=== PATIENT | female | born 1960 | race African-American/Black ===

== ENCOUNTER 2020-07-16 16:34 | Inpatient (IN) | payer OTHER ==
--- OUTSIDE RECORDS SUMMARY | 2020-07-16 16:41 | XMS ---
:1960 Author Organization [facility] Support Name Relationship Address Phone UE Unavailable Unavailable Unavailable DARYN ZAMAN DAUGHTER [address] [address] [place] [address] Re-disclosure Warning The records that you are about to access may contain information from federally- assisted alcohol or drug abuse programs. If such information is present, then the following federally mandated warning applies: This information has been disclosed to you from records protected by federal confidentiality rules (42 CFR part 2). The federal rules prohibit you from making any further disclosure of this information unless further disclosure is expressly permitted by the written consent of the person to whom it pertains or as otherwise permitted by 42 CFR part 2. A general authorization for the release of medical or other information is NOT sufficient for this purpose. The Federal rules restrict any use of the information to criminally investigate or prosecute any alcohol or drug abuse patient.The records that you are about to access may contain highly sensitive health information, the redisclosure of which is protected by Article 27-F of the [facility] Public Health law. If you continue you may haveaccess to information: Regarding HIV / AIDS; Provided by facilities licensed or operated by the [facility] Office of Mental Health; or Provided by the [facility] Office for People With Developmental Disabilities. If such information is present, then the following [facility] mandated warning applies: This information has been disclosed to you from confidential records which are protected by state law. State law prohibits you from making any further disclosure of this information without the specific written consent of the person to whom it pertains, or as otherwise permitted by law. Any unauthorized further disclosure in violation of state law may result in a fine or custodial sentence or both. A general authorization for the release of medical or other information is NOT sufficient authorization for further disclosure. Insurance Providers Payer name Policy type Policy ID Covered Covered republican's Policy P braeden / Coverage republican ID relationship to [employer] ormation type kuo [facility] [id number] MEDICAID COMM PLAN
[2020-07-16 18:00] VITALS: BMI 22.2
[2020-07-16] MEDS ORDERED: BISMUTH SUBSALICYLATE 524 MG/30 ML UD PO PRN (18:46)
[2020-07-16] MEDS ORDERED: NICOTINE POLACRILEX 2 MG GUM BUC PRN (18:46)
[2020-07-16] MEDS ORDERED: ACETAMINOPHEN 325 MG TABLET (FP) PO PRN ×2 (18:46)
[2020-07-16] MEDS ORDERED: cloNIDine HCL 0.1 MG TABLET PO PRN (18:46)
[2020-07-16] MEDS ORDERED: METHOCARBAMOL 500 MG TABLET PO PRN (18:46)
[2020-07-16] MEDS ORDERED: MENTHOL/PHENOL 1 EACH UD MM PRN (18:46)
[2020-07-16] MEDS ORDERED: MAG HYDROX/AL HYDROX/SIMETH 30 ML UNIT-DOSE CUP PO PRN (18:46)
[2020-07-16] MEDS ORDERED: MAGNESIUM HYDROX 2400MG/30ML ORAL SUSPENSION 30 ML CUP PO PRN (18:46)
[2020-07-16] MEDS ORDERED: METHADONE HCL 10 MG TABLET (FOR DETOX USE ONLY) PO ONE (18:46)
[2020-07-16] MEDS ORDERED: MAGNESIUM CITRATE 300 ML BOTTLE PO PRN (18:46)
--- NOTE | 2020-07-16 18:53 | BHS.RME ---
Substance Use & Tx History - Substance Use History Heroin Substance amount: 5 ags Frequency of use: Daily Substance route: Inhalation (ex: sniffing or snorting) Nicotine Substance amount: 10 Frequency of use: Daily Substance route: Smoking - Last Treatment Treatment type: Medical Where was last treatment: Med/Surg (4 months ago for right fracture.) Physical/Psych/Mental Status - Behavior General Behavior: Increased activity (restlessness, agitation) - Cooperativeness Cooperativeness: Cooperative - Thinking Thought Processes: Tight, Logical Thought content: Future oriented - Physical Health Problems Is patient presently having any pain?: Yes (right knee pain) Does patient presently have any injuries (include location): No Does patient currently have a fever: No Is patient : No COWS - Scale Resting Pulse: 0= [place] 80 or Below Sweatin= Chills/Flushing Restless Observation: 1= Difficult to Sit Still Pupil Size: 0= Normal to Room Light Bone or Joint Aches: 2= Severe Diffuse Aches Runny Nose/ Eye Tearin= Nasal Congestion GI Upset > 30mins: 2= Nausea/Diarrhea Tremor Observation: 1= Tremor [place], Not Seen Yawning Observation: 0= None Anxiety or Irritability: 2=Irritable/Anxious Goose Flesh Skin: 0=Smooth Skin COWS Score: 10
--- NOTE | 2020-07-16 18:56 | HP ---
COWS - Scale Resting Pulse: 0= [place] 80 or Below Sweatin= Chills/Flushing Restless Observation: 1= Difficult to Sit Still Pupil Size: 0= Normal to Room Light Bone or Joint Aches: 2= Severe Diffuse Aches Runny Nose/ Eye Tearin= Nasal Congestion GI Upset > 30mins: 2= Nausea/Diarrhea Tremor Observation: 1= Tremor [place], Not Seen Yawning Observation: 0= None Anxiety or Irritability: 2=Irritable/Anxious Goose Flesh Skin: 0=Smooth Skin COWS Score: 10 CIWA Score - Admission Criteria OASAS Guidelines: Admission for Medically Managed Detox: Requires at least one of the followin. CIWA greater than 12 2. Seizures within the past 24 hours 3. Delirium tremens within the past 24 hours 4. Hallucinations within the past 24 hours 5. Acute intervention needed for co occurring medical disorder 6. Acute intervention needed for co occurring psychiatric disorder 7. Severe withdrawal that cannot be handled at a lower level of care (continued vomiting, continued diarrhea, abnormal vital signs) requiring intravenous medication and/or fluids 8. Admitting History and Physical - Admission Chief Complaint: I'm getting sick. History of Present Illness: Miss Sharma is 59 y/o female with history of Asthma, heroin and nicotine use disorder, presents here for heroin detox. Started using heroin since age 16, currently using 5 bags of heroin ( sniffing). Last use was this morning. Patient claimed she was in [facility] until 2 weeks ago when she was suppose to have right wrist surgery.Has not been to her program since then.Currently complaining of chills, abdominal pain, nausea, multiple joints ache and diarrhea. History Source: Patient Limitations to Obtaining History: No Limitations - Past Medical History Cardiovascular: Yes: Aortic Stenosis Pulmonary: Yes: Asthma Reproductive: Yes: Postmenopausal ...: No (postmonpausal) Psych: Yes: Schizophrenia Musculoskeletal: Yes: Osteoarthritis - Past Surgical History Past Surgical History: Yes: , Hysterectomy, Joint Replacement - Smoking History Smoking history: Current every day smoker Aproximately how many cigarettes per day: 10 - Alcohol/Substance Use Hx Alcohol Use: No History of Substance Use: reports: Cocaine, Heroin Date of Last Use: 07/16/20 - Social History Usual Living Arrangement: Yes: Alone Do you think of yourself as: Straight/Heterosexual ADL: Independent History of Recent Travel: No Admission ROS S - HPI Allergies/Adverse Reactions: Allergies Allergy/AdvReac Type Severity Reaction Status Date / Time Penicillins AdvReac Verified 07/16/20 18:45 Exam Limitations: No Limitations - Ebola screening Have you traveled outside of the country in the last 21 days: No Have you had contact with anyone from an Ebola affected area: No Have you been sick,other than usual withdrawal symptoms: No Do you have a fever: No - Review of Systems Constitutional: Chills, Malaise EENT: reports: Nose Congestion Respiratory: reports: No Symptoms reported Cardiac: reports: No Symptoms Reported GI: reports: Diarrhea, Nausea : reports: No Symptoms Reported Musculoskeletal: reports: Joint Pain (right knee) Integumentary: reports: No Symptoms Reported Neuro: reports: No Symptoms reported Endocrine: reports: No Symptoms Reported Hematology: reports: No Symptoms Reported Psychiatric: reports: Judgement Intact, Orientated x3, Anxious Other Systems: Reviewed and Negative Patient History - Patient Medical History Hx Anemia: No Hx Asthma: Yes Hx Chronic Obstructive Pulmonary Disease (COPD): No Hx Cancer: No Hx Cardiac Disorders: No Hx Congestive Heart Failure: No Hx Hypertension: No Hx Hypercholesterolemia: No Hx Pacemaker: No HX Cerebrovascular Accident: No Hx Seizures: No Hx Dementia: No Hx Diabetes: No Hx Gastrointestinal Disorders: No Hx Liver Disease: No Hx Genitourinary Disorders: No Hx Sexually Transmitted Disorders: No - Patient Surgical History Past Surgical History: Yes Hx Neurologic Surgery: No Hx Cataract Extraction: No Hx Cardiac Surgery: No Hx Lung Surgery: No Hx Breast Surgery: No Hx Breast Biopsy: No Hx Abdominal Surgery: No Hx Appendectomy: No Hx Cholecystectomy: No Hx Genitourinary Surgery: No Hx Section: Yes Hx Orthopedic Surgery: Yes (right wrist 4 months ago) Hx Hysterectomy: Yes (5 years ago, right patella surgery 3 years ago.) Anesthesia Reaction: No - PPD History Previous Implant?: Yes Documented Results: Negative w/o proof Implanted On Prior R Admission?: No PPD to be Administered?: No - Reproductive History Patient is a Female of Child Bearing Age (11 -55 yrs old): No Patient : No (hysterectomy 5 years.) - Smoking Cessation Smoking history: Current every day smoker Aproximately how many cigarettes per day: 10 Hx Chewing Tobacco Use: No Initiated information on smoking cessation: Yes 'Breaking Loose' booklet given: 07/16/20 - Substance & Tx. History Hx Alcohol Use: No Substance Use Type: Cocaine, Heroin Hx Substance Use Treatment: Yes ([facility]) - Substances abused Heroin Frequency: Daily Amount used: 5 Age of first use: 16 Date of last use: 07/16/20 Admission Physical Exam [facility] - Vital Signs Vital Signs: Vital Signs - 24 hr 07/16/20 17:59 Temperature 97.2 F L Pulse Rate 68 Respiratory 18 Rate Blood Pressure 118/65 - Physical General Appearance: Yes: Appropriately Dressed, Irritable, Anxious HEENTM: Yes: Within Normal Limits, Hearing grossly Normal, Tm's normal Respiratory: Yes: Within Normal Limits, Chest Non-Tender, No Accessory Muscle Use Neck: Yes: Within Normal Limits Breast: Yes: Breast Exam Deferred Cardiology: Yes: Within Normal Limits, Regular Rhythm, Regular Rate, S1, S2 Abdominal: Yes: Within Normal Limits, Normal Bowel Sounds, Soft Genitourinary: Yes: Within Normal Limits Back: Yes: Within Normal Limits Musculoskeletal: Yes: Joint Stiffness (decreased ROM to right knee and right wrist.) Extremities: Yes: Within Normal Limits, Normal Capillary Refill, Normal Inspection Neurological: Yes: Within Normal Limits, Fully Oriented, Alert Integumentary: Yes: Within Normal Limits, Dry, Warm Lymphatic: Yes: Within Normal Limits - Diagnostic (1) Opioid dependence with withdrawal Current Visit: Yes Status: Acute (2) Nicotine dependence Current Visit: Yes Status: Chronic Cleared for Admission [facility] - Detox or Rehab [facility] Level of Care: Medically Managed Detox Regimen/Protocol: Methadone Claeared for Rehab Admission: No Breathalyzer - Breathalyzer Breathalyzer: 0 Urine Drug Screen - Test Device Lot number: [id number] Expiration date: 05/06/22 - Control Is test valid?: Yes - Results Drug screen NEGATIVE: No Urine drug screen results: CAM-Cocaine, FEN-Fentanyl, MOP-Opiates Inpatient Rehab Admission - Rehab Decision to Admit Inpatient rehab admission?: No
--- OUTSIDE RECORDS SUMMARY | 2020-07-16 19:22 | XMS ---
:1960 Author Organization [facility] Support Name Relationship Address Phone UE Unavailable Unavailable Unavailable DARYN ZAMAN DAUGHTER [address] [address] [place] [address] Re-disclosure Warning The records that you are [...] is protected by Article 27-F of the [facility] Public Health law. If you continue you may haveaccess to information: Regarding HIV / AIDS; Provided by facilities licensed or operated by the [facility] Office of Mental Health; or Provided by the [facility] Office for People With Developmental Disabilities. If such information is present, then the following [facility] mandated warning applies: This information has been [...] law may result in a fine or snf sentence or both. A general authorization for the release of medical or other information is NOT sufficient authorization for further disclosure. Insurance Providers Payer name Policy type Policy ID Covered Covered republican's Policy P braed[place] / Coverage republican ID relationship to [employer] Inf ormation type kuo [facility] [id number] MEDICAID COMM PLAN
[2020-07-16] MEDS: MELATONIN 5 MG TABLETS PO SCH (22:32)
[2020-07-16] MEDS: THIAMINE HCL 100 MG TABLET (FP) PO SCH (22:32)
[2020-07-16] MEDS: IBUPROFEN 400 MG TABLET (FP) PO PRN (22:33)
[2020-07-17] MEDS: hydrOXYzine PAMOATE 25 MG CAPSULE (FP) PO PRN (06:32)
[2020-07-17] MEDS ORDERED: METHADONE HCL 10 MG TABLET (FOR DETOX USE ONLY) ONE (08:37)
[2020-07-17] MEDS ORDERED: METHADONE HCL 5 MG TABLET (FOR DETOX USE ONLY) ONE (08:37)
[2020-07-17] MEDS: PRENATAL VITAMINS W/ FOLIC ACID TABLET (FP) PO SCH (09:40)
[2020-07-17] MEDS: NICOTINE 7 MG/24 HOURS TOPICAL PATCH TD SCH (09:40)
[2020-07-17] MEDS: IBUPROFEN 400 MG TABLET (FP) PO PRN ×2 (09:42→22:39)
[2020-07-17] MEDS ORDERED: METHADONE (DETOX) 20 MG, METHADONE (DETOX) 5 MG PO ONE (10:00)
[2020-07-17 10:09] LABS: HEMATOCRIT 37.9 % (32.4-45.2); HEMOGLOBIN 12.2 GM/dL (10.7-15.3); MCH 28.8 pg (25.7-33.7); MCHC 32.1 g/dl (32.0-36.0); MEAN CELL VOLUME 89.8 fl (80-96); MEAN PLT VOLUME 8.6 fl (7.5-11.1); PLATELET COUNT 267 K/MM3 (134-434); RBC 4.22 M/mm3 (3.60-5.2); RDW 14.8 % (11.6-15.6); WHITE BLOOD COUNT 4.2 K/mm3 (4.0-10.0)
[2020-07-17 10:19] LABS: ALBUMIN 3.1 g/dl (3.4-5.0); BILIRUBIN,TOTAL 0.5 mg/dL (0.2-1); BLOOD UREA NITROGEN 20.2 mg/dL (7-18); CALCIUM 8.9 mg/dL (8.5-10.1); CREATININE 0.8 mg/dL (0.55-1.3); POTASSIUM 3.9 mmol/L (3.5-5.1); TOT PROT 6.6 g/dl (6.4-8.2)
--- NOTE | 2020-07-17 13:12 | PN ---
BHS COWS - Scale Resting Pulse: 0= [place] 80 or Below Sweatin= Chills/Flushing Restless Observation: 1= Difficult to Sit Still Pupil Size: 0= Normal to Room Light Bone or Joint Aches: 1= Mild Discomfort Runny Nose/ Eye Tearin= Nasal Congestion GI Upset > 30mins: 0= None Tremor Observation of Outstretched Hands: 1= Tremor [place], Not Seen Yawning Observation: 2= >3x During Session Anxiety or Irritability: 2=Irritable/Anxious Goose Flesh Skin: 0=Smooth Skin COWS Score: 9 BHS Progress Note (SOAP) Subjective: sweats body aches increase fluids interrupted sleep agitation chills Objective: 07/17/20 13:11 Vital Signs Temperature 97.3 F L 07/17/20 12:36 Pulse Rate 51 L 07/17/20 12:36 Respiratory Rate 16 07/17/20 12:36 Blood Pressure 118/56 L 07/17/20 12:36 O2 Sat by Pulse Oximetry (%) 97 07/17/20 12:36 Laboratory Tests 07/16/20 07/16/20 07/17/20 07:00 07:00 07:00 WBC 4.2 RBC 4.22 Hgb 12.2 Hct 37.9 MCV 89.8 MCH 28.8 MCHC 32.1 RDW 14.8 Plt Count 267 MPV 8.6 Sodium Potassium Chloride Carbon Dioxide Anion Gap BUN Creatinine Est GFR (CKD-EPI)AfAm Est GFR (CKD-EPI)NonAf Random Glucose Calcium Total Bilirubin AST ALT Alkaline Phosphatase Total Protein Albumin Syphilis Serology Reactive A* RPR Titer Reactive 1:1 H 07/17/20 07:00 WBC RBC Hgb Hct MCV MCH MCHC RDW Plt Count MPV Sodium 139 Potassium 3.9 Chloride 106 Carbon Dioxide 28 Anion Gap 5 L BUN 20.2 H Creatinine 0.8 Est GFR (CKD-EPI)AfAm 93.53 Est GFR (CKD-EPI)NonAf 80.70 Random Glucose 75 Calcium 8.9 Total Bilirubin 0.5 AST 16 ALT 23 Alkaline Phosphatase 87 Total Protein 6.6 Albumin 3.1 L Syphilis Serology RPR Titer labs noted aaox3 lying in bed no acute distress Assessment: 07/17/20 13:12 withdrawals Plan: continue detox increase fluids
--- NOTE | 2020-07-17 13:39 | EKG ---
Test Reason : Blood Pressure : / mmHG Vent. Rate : 059 BPM Atrial Rate : 059 BPM P-R Int : 170 ms QRS Dur : 072 ms QT Int : 416 ms P-R-T Axes : 071 072 074 degrees QTc Int : 411 ms SINUS BRADYCARDIA WITH SINUS ARRHYTHMIA OTHERWISE NORMAL ECG NO PREVIOUS ECGS AVAILABLE Confirmed by KYLAH BLAKE, ANTHONY ([id number]) on 07/17/2020 1:38:57 PM Referred By: Confirmed By:ANTHONY MONTERO MD
[2020-07-17] MEDS: THIAMINE HCL 100 MG TABLET (FP) PO SCH (22:37)
[2020-07-17] MEDS: MELATONIN 5 MG TABLETS PO SCH (22:38)
[2020-07-18] MEDS: ONDANSETRON *ODT* 4 MG TABLET SL PRN (08:52)
[2020-07-18] MEDS ORDERED: TRIMETHOBENZAMIDE HCL 200MG/2ML INJ IM ONE (09:43)
[2020-07-18] MEDS ORDERED: METHADONE HCL 10 MG TABLET (FOR DETOX USE ONLY) PO ONE (10:00)
[2020-07-18] MEDS: PRENATAL VITAMINS W/ FOLIC ACID TABLET (FP) PO SCH (10:35)
[2020-07-18] MEDS: NICOTINE 7 MG/24 HOURS TOPICAL PATCH TD SCH (10:35)
[2020-07-18] MEDS ORDERED: diazePAM 5 MG TABLET PO PRN (12:16)
--- NOTE | 2020-07-18 13:38 | PN ---
S COWS - Scale Resting Pulse: 0= [place] 80 or Below Sweatin=Flushed/Facial Moisture Restless Observation: 1= Difficult to Sit Still Pupil Size: 0= Normal to Room Light Bone or Joint Aches: 2= Severe Diffuse Aches Runny Nose/ Eye Tearin= Runny Nose/Eyes GI Upset > 30mins: 2= Nausea/Diarrhea Tremor Observation of Outstretched Hands: 1= Tremor [place], Not Seen Yawning Observation: 1= 1-2x During Session Anxiety or Irritability: 1=Feels Anxious/Irritable Goose Flesh Skin: 0=Smooth Skin COWS Score: 12 BHS Progress Note (SOAP) Subjective: nausea vomiting chills body aches restless interrupted sleep Objective: 07/18/20 13:39 Vital Signs Temperature 98.3 F 07/18/20 08:53 Pulse Rate 49 L 07/18/20 08:53 Respiratory Rate 16 07/18/20 08:53 Blood Pressure 131/77 07/18/20 08:53 O2 Sat by Pulse Oximetry (%) 100 07/18/20 05:46 Laboratory Tests 07/16/20 07/16/20 07/16/20 07:00 07:00 18:00 WBC RBC Hgb Hct MCV MCH MCHC RDW Plt Count MPV Sodium Potassium Chloride Carbon Dioxide Anion Gap BUN Creatinine Est GFR (CKD-EPI)AfAm Est GFR (CKD-EPI)NonAf Random Glucose Calcium Total Bilirubin AST ALT Alkaline Phosphatase Total Protein Albumin POC Urine HCG, Qual Negative Syphilis Serology Reactive A* RPR Titer Reactive 1:1 H 07/17/20 07/17/20 07:00 07:00 WBC 4.2 RBC 4.22 Hgb 12.2 Hct 37.9 MCV 89.8 MCH 28.8 MCHC 32.1 RDW 14.8 Plt Count 267 MPV 8.6 Sodium 139 Potassium 3.9 Chloride 106 Carbon Dioxide 28 Anion Gap 5 L BUN 20.2 H Creatinine 0.8 Est GFR (CKD-EPI)AfAm 93.53 Est GFR (CKD-EPI)NonAf 80.70 Random Glucose 75 Calcium 8.9 Total Bilirubin 0.5 AST 16 ALT 23 Alkaline Phosphatase 87 Total Protein 6.6 Albumin 3.1 L POC Urine HCG, Qual Syphilis Serology RPR Titer aaox3 ambulating no acute distress Assessment: 07/18/20 13:44 withdrawals Plan: continue detox increase fluids
--- NOTE | 2020-07-18 14:55 | PN ---
[facility] Progress Note Note: Rn called to state pt has angio edema of tongue and had difficulty breathing pt was given Benadryl 50mg IM and epi 0.3mg. Last BP 161/113 HR 111, O2 SAT 97% on RA. pt responding well to treatment stating her tongue is feeling better but a little numb
[2020-07-18] MEDS ORDERED: EPINEPHrine/PF 1 MG/1 ML (1:1,000) AMPULE IM ONE ×3 (15:40→15:45)
--- NOTE | 2020-07-18 21:50 | PN ---
[facility] Progress Note Note: Patient returns from [facility] ED after being sent earlier for c/o tongue swelling and SOB. Patient ED discharge notes: NAD, well appearing, EOMI, PERRL, MMM, nl conjunctiva, anicteric; normal phonation, oropharynx clear. neck supple. no respiratory distress, MARRUFO x4, no focal neuro deficits. speech clear, No peripheral edema. normal color for ethnicity, WWP. DDx. allergic reaction: hypersensitivity reaction Discharge meds: prescription for epipen; Benadryl (also called diphenhydramine) 25mg every 6-8 hours as needed for further allergy symptoms. Assess: Patient is alert and oriented and in no apparent distress. No tongue or oral mucosal edema noted. Able to speak clearly and swallow w/o difficu;ty. Lungs CTA. B/P: 146/71; HR 63. Plan: Return to [facility] and continue of detox. Will order Benadryl 25 mg PO Q6H for allergy symptoms w/ notification of HCP.
[2020-07-18] MEDS: MELATONIN 5 MG TABLETS PO SCH (22:38)
[2020-07-18] MEDS: THIAMINE HCL 100 MG TABLET (FP) PO SCH (22:43)
[2020-07-19] MEDS ORDERED: METHADONE HCL 10 MG TABLET (FOR DETOX USE ONLY) ONE (09:24)
[2020-07-19] MEDS ORDERED: METHADONE HCL 5 MG TABLET (FOR DETOX USE ONLY) ONE (09:24)
[2020-07-19] MEDS ORDERED: METHADONE (DETOX) 10 MG, METHADONE (DETOX) 5 MG PO ONE (10:00)
[2020-07-19] MEDS: NICOTINE 7 MG/24 HOURS TOPICAL PATCH TD SCH (10:19)
[2020-07-19] MEDS: PRENATAL VITAMINS W/ FOLIC ACID TABLET (FP) PO SCH (10:19)
--- NOTE | 2020-07-19 16:27 | PN ---
BHS COWS - Scale Resting Pulse: 0= PA 80 or Below Sweatin= Chills/Flushing Restless Observation: 0= Sits Still Pupil Size: 0= Normal to Room Light Bone or Joint Aches: 1= Mild Discomfort Runny Nose/ Eye Tearin= None GI Upset > 30mins: 0= None Tremor Observation of Outstretched Hands: 2= Slight Tremor Visible Yawning Observation: 1= 1-2x During Session Anxiety or Irritability: 2=Irritable/Anxious Goose Flesh Skin: 0=Smooth Skin COWS Score: 7 BHS Progress Note (SOAP) Subjective: Anxious, Fatigue, Sweating. Objective: Patient A & O X 2 (uncertain about current Day/Date); In No Acute Distress, observed lying in bed. Patient was sent to ER yesterday for swelling of tongue. Today, no swelling of tongue visualized. Patient denies discomfort in tongue and she denies difficulty swallowing. 07/19/20 16:22 Vital Signs Temperature 98.4 F 07/19/20 12:40 Pulse Rate 53 L 07/19/20 12:40 Respiratory Rate 17 07/19/20 12:40 Blood Pressure 132/64 07/19/20 12:40 O2 Sat by Pulse Oximetry (%) 98 07/19/20 12:40 Laboratory Tests 07/16/20 07/16/20 07/16/20 07:00 07:00 18:00 WBC RBC Hgb Hct MCV MCH MCHC RDW Plt Count MPV Sodium Potassium Chloride Carbon Dioxide Anion Gap BUN Creatinine Est GFR (CKD-EPI)AfAm Est GFR (CKD-EPI)NonAf Random Glucose Calcium Total Bilirubin AST ALT Alkaline Phosphatase Total Protein Albumin POC Urine HCG, Qual Negative Syphilis Serology Reactive A* RPR Titer Reactive 1:1 H COVID-19 ([facility]) 07/16/20 07/17/20 07/17/20 19:55 07:00 07:00 WBC 4.2 RBC 4.22 Hgb 12.2 Hct 37.9 MCV 89.8 MCH 28.8 MCHC 32.1 RDW 14.8 Plt Count 267 MPV 8.6 Sodium 139 Potassium 3.9 Chloride 106 Carbon Dioxide 28 Anion Gap 5 L BUN 20.2 H Creatinine 0.8 Est GFR (CKD-EPI)AfAm 93.53 Est GFR (CKD-EPI)NonAf 80.70 Random Glucose 75 Calcium 8.9 Total Bilirubin 0.5 AST 16 ALT 23 Alkaline Phosphatase 87 Total Protein 6.6 Albumin 3.1 L POC Urine HCG, Qual Syphilis Serology RPR Titer COVID-19 ([facility]) Not detected Lab Results noted. Detox Admission RPR Result noted: Reactive A; Reactive; Titer 1:1. Patient denies history of treatment for Syphilis in the past. 07/19/20 16:23 Assessment: 07/19/20 16:22 WITHDRAWAL SYMPTOMS. REACTIVE RPR. 07/19/20 16:23 Plan: Continue Detox. Doxycycline, 100 mg BID for 14 days ordered for Reactive RPR result. Follow-up prescription for Doxycycline sent to [facility] ([place], [place]) for Patient to pickling operator when leaving Hospital to take for aftercare. Patient advised to complete remainder of full prescription course of antibiotic after picking up from Pharmacy. Patient also advised to follow-up with [facility] after Discharge from Detox for Reactive RPR result noted on Detox Admission Laboratory Assessment. Patient verbalized understanding of recommendation. Copies of results of all labs drawn while admitted for Detox will be given to patient at time of discharge from Detox Unit.
[2020-07-19] MEDS: DOXYCYCLINE HYCLATE 100 MG CAPSULE PO SCH (18:54)
[2020-07-19] MEDS: MELATONIN 5 MG TABLETS PO SCH (23:10)
[2020-07-19] MEDS: THIAMINE HCL 100 MG TABLET (FP) PO SCH (23:11)
[2020-07-20] MEDS: ONDANSETRON *ODT* 4 MG TABLET SL PRN (04:05)
[2020-07-20] MEDS: NICOTINE 7 MG/24 HOURS TOPICAL PATCH TD SCH (09:46)
[2020-07-20] MEDS: PRENATAL VITAMINS W/ FOLIC ACID TABLET (FP) PO SCH (09:46)
[2020-07-20] MEDS: DOXYCYCLINE HYCLATE 100 MG CAPSULE PO SCH ×2 (09:46→18:27)
[2020-07-20] MEDS ORDERED: METHADONE HCL 10 MG TABLET (FOR DETOX USE ONLY) PO ONE (10:00)
--- NOTE | 2020-07-20 13:03 | PN ---
BHS COWS - Scale Resting Pulse: 0= ME 80 or Below Sweatin= No chills or Flushing Restless Observation: 0= Sits Still Pupil Size: 0= Normal to Room Light Bone or Joint Aches: 1= Mild Discomfort Runny Nose/ Eye Tearin= None GI Upset > 30mins: 0= None Tremor Observation of Outstretched Hands: 0= None Yawning Observation: 0= None Anxiety or Irritability: 1=Feels Anxious/Irritable Goose Flesh Skin: 0=Smooth Skin COWS Score: 2 BHS Progress Note (SOAP) Subjective: Complaints of mild anxiety and body aches. Objective: 07/20/20 13:00 Alert and oriented x3, in no acute respiratory distress. Full ROM, ambulating in unit without any assistance. Skin warm to touch without lesions. Assessment: 07/20/20 13:01 Withdrawal symptoms Reactive RPR. Plan: Continue detox protocol. Continue Doxycycline for reactive RPR. D/C in AM. Prescriptions for Doxycycline sent to [facility] by previous provider.
[2020-07-20] MEDS: THIAMINE HCL 100 MG TABLET (FP) PO SCH (21:58)
[2020-07-20] MEDS: MELATONIN 5 MG TABLETS PO SCH (21:58)
[2020-07-20] MEDS: hydrOXYzine PAMOATE 25 MG CAPSULE (FP) PO PRN (21:58)
[2020-07-21] MEDS ORDERED: METHADONE HCL 5 MG TABLET (FOR DETOX USE ONLY) PO ONE (06:00)
[2020-07-21 09:51] VITALS: BP 121/71; PULSE 55; TEMP 98.1
--- NOTE | 2020-07-21 14:44 | DS ---
[facility] Detox Discharge Summary Admission Date: 07/16/20 Discharge Date: 07/21/20 - History Present History: Opioid Dependence - Physical Exam Results Vital Signs: Vital Signs Temperature 98.1 F 07/21/20 08:30 Pulse Rate 55 L 07/21/20 08:30 Respiratory Rate 16 07/21/20 08:30 Blood Pressure 121/71 07/21/20 08:30 O2 Sat by Pulse Oximetry (%) 100 07/21/20 08:30 Pertinent Admission Physical Exam Findings: Vital Signs Temperature 98.1 F 07/21/20 08:30 Pulse Rate 55 L 07/21/20 08:30 Respiratory Rate 16 07/21/20 08:30 Blood Pressure 121/71 07/21/20 08:30 O2 Sat by Pulse Oximetry (%) 100 07/21/20 08:30 Laboratory Tests 07/16/20 07/16/20 07/16/20 07:00 07:00 18:00 WBC RBC Hgb Hct MCV MCH MCHC RDW Plt Count MPV Sodium Potassium Chloride Carbon Dioxide Anion Gap BUN Creatinine Est GFR (CKD-EPI)AfAm Est GFR (CKD-EPI)NonAf Random Glucose Calcium Total Bilirubin AST ALT Alkaline Phosphatase Total Protein Albumin POC Urine HCG, Qual Negative Syphilis Serology Reactive A* RPR Titer Reactive 1:1 H COVID-19 ([facility]) 07/16/20 07/17/20 07/17/20 19:55 07:00 07:00 WBC 4.2 RBC 4.22 Hgb 12.2 Hct 37.9 MCV 89.8 MCH 28.8 MCHC 32.1 RDW 14.8 Plt Count 267 MPV 8.6 Sodium 139 Potassium 3.9 Chloride 106 Carbon Dioxide 28 Anion Gap 5 L BUN 20.2 H Creatinine 0.8 Est GFR (CKD-EPI)AfAm 93.53 Est GFR (CKD-EPI)NonAf 80.70 Random Glucose 75 Calcium 8.9 Total Bilirubin 0.5 AST 16 ALT 23 Alkaline Phosphatase 87 Total Protein 6.6 Albumin 3.1 L POC Urine HCG, Qual Syphilis Serology RPR Titer COVID-19 ([facility]) Not detected aaox3 ambulating no acute distress lungs CTA - Treatment Hospital Course: Detox Protocol Followed, Detoxed Safely, Responded well, Discharged Condition Good, Rehab Referral Accepted - Medication Discharge Medications: Ambulatory Orders EPINEPHrine (EPI-PEN 0.3MG) [Epipen 0.3MG -] 0.3 mg IM ASDIR #2 pens 07/18/20 Doxycycline Hyclate 100 mg PO BID 12 Days #24 tablet 07/19/20 - Diagnosis (1) Angio-edema Status: Acute (2) Allergic reaction Status: Acute Qualifiers: Encounter type: initial encounter Qualified Code(s): T78.40XA - Allergy, unspecified, initial encounter (3) Opioid dependence with withdrawal Status: Chronic (4) Nicotine dependence Status: Chronic Qualifiers: Nicotine product type: cigarettes Substance use status: uncomplicated Qualified Code(s): F17.210 - Nicotine dependence, cigarettes, uncomplicated - AMA Did Patient Leave Against Medical Advice: No
== END 2020-07-21 10:35 | disposition home or self-care (01) | DRG 773 ==
LOC: YASAS 16:34 → Y6N 19:18
PROVIDERS: ADMIT Allergy & Immunology; ATTEND Allergy & Immunology
PROC: HZ2ZZZZ Detoxification Services for Substance Abuse Treatment (ICD-10-PCS; principal; 2020-07-16)
DX: F11.23 Opioid dependence with withdrawal (principal); F14.20 Cocaine dependence, uncomplicated; F17.210 Nicotine dependence, cigarettes, uncomplicated; F20.9 Schizophrenia, unspecified; A53.0 Latent syphilis, unspecified as early or late; J45.909 Unspecified asthma, uncomplicated; M19.90 Unspecified osteoarthritis, unspecified site; M25.561 Pain in right knee; T78.3XXA Angioneurotic edema, initial encounter; T78.40XA Allergy, unspecified, initial encounter; X58.XXXA Exposure to other specified factors, initial encounter; Z86.79 Personal history of other diseases of the circulatory system; Z98.890 Other specified postprocedural states; Z88.0 Allergy status to penicillin; Z88.8 Allergy status to other drugs, medicaments and biological substances
CPT/HCPCS: 36415; 80053; 81025; 85027; 86593; 86780; 93005; 93010; C9803; Q0162; U0003

== ENCOUNTER 2020-07-18 15:40 | Emergency (ER) | payer OTHER ==
[2020-07-18 15:59] VITALS: TEMP 98.3; BMI 20.9
--- OUTSIDE RECORDS SUMMARY | 2020-07-18 16:18 | XMS ---
:1960 Author [facility] Support Name Relationship Address Phone UE, UNEMPLOYED Unavailable Unavailable Unavailable UE Unavailable Unavailable Unavailable DARYN ZAMAN DAUGHTER [address] [address] [place] [address] Re-disclosure Warning The records that you are [...] is protected by Article 27-F of the [facility] Public Health law. If you continue you may haveaccess to information: Regarding HIV / AIDS; Provided by facilities licensed or operated by the [facility] Office of Mental Health; or Provided by the [facility] Office for People With Developmental Disabilities. If such information is present, then the following [facility] mandated warning applies: This information has [...] law may result in a fine or fdc sentence or both. A general authorization for the release of medical or other information is NOT sufficient authorization for further disclosure. Insurance Providers Payer name Policy type Policy ID Covered Covered alliance party's Policy P braeden / Coverage alliance party ID relationship to [employer] ormation type kuo [facility] [id number] MEDICAID COMM PLAN
[2020-07-18] MEDS ORDERED: DEXAMETHASONE 4 MG TABLET (FP) PO ONE (17:15)
[2020-07-18] MEDS ORDERED: DEXAMETHASONE SOD PHOSPHATE 10 MG/1 ML VIAL IM ONE (17:19)
[2020-07-18] MEDS ORDERED: DEXAMETHASONE SOD PHOSPHATE 10 MG/1 ML VIAL ONE (17:23)
--- NOTE | 2020-07-18 17:57 | PDOC ---
History of Present Illness - General Chief Complaint: Allergic Reaction Stated Complaint: ALLERGIC REACTION Time Seen by Provider: 07/18/20 16:54 - History of Present Illness Initial Comments: 59 YOF h/o asthma and substance abuse presents from [facility] for tongue welling and shortness of breath. Patient was found in her room with angioedema of the tongue and shortness of breath, was given 0.3 of epi and 50mg of benadryl and s hortly thereafter indicated that her shortness of breath had resolved. She was sent to the ER for evaluation. Upon arrival patient reports myalgia, headache, nausea and vomiting, fever and chills. She denies CP and SOB Constitutional: No Fever, No Chills ENT/Mouth: No Hearing Changes Eyes: No Vision Changes Cardiovascular: No Chest Pain, No SOB Respiratory: No Cough, No Sputum Gastrointestinal: No Nausea, No Vomiting, No Diarrhea, No Hematochezia, No Melena Genitourinary: No Dysuria, No Urinary Frequency, No Hematuria, No Urinary Incontinence Musculoskeletal: No Arthralgias, No Myalgias Neuro: No Weakness, No Numbness, No Headache, No Recent Falls 07/18/20 18:17 Past History - Medical History Allergies/Adverse Reactions: Allergies Allergy/AdvReac Type Severity Reaction Status Date / Time diazepam [From Valium] Allergy Verified 07/18/20 15:57 Penicillins AdvReac Verified 07/18/20 15:57 Home Medications: Ambulatory Orders EPINEPHrine (EPI-PEN 0.3MG) [Epipen 0.3MG -] 0.3 mg IM ASDIR #2 pens 07/18/20 Anemia: No Asthma: No Cancer: No Cardiac Disorders: No CVA: No COPD: No CHF: No Dementia: No Diabetes: No GI Disorders: No Disorders: No HTN: No Hypercholesterolemia: No Kidney Stones: No Liver Disease: No Seizures: No - Surgical History Abdominal Surgery: No Appendectomy: No Cardiac Surgery: No Cholecystectomy: No Lung Surgery: No Neurologic Surgery: No Orthopedic Surgery: Yes (right wrist 4 months ago) - Reproductive History PID: No - Immunization History Immunization Up to Date: Yes - Psycho-Social/Smoking History Smoking History: Current every day smoker Number of Cigarettes Smoked Daily: 10 Information on smoking cessation initiated: No 'Breaking Loose' booklet given: 07/16/20 - Substance Abuse Hx (Audit-C & DAST Scrn) How often the patient has a drink containing alcohol: Never Score: In Men: 4 or > Positive; In Women: 3 or > Positive: 0 Screen Result (Pos requires Nsg. Audit-10AR): Negative In the last yr the pt used illegal drug/Rx for NonMed reason: Yes Score: Yes response is considered Positive: 1 Screen Result (Positive result requires Nsg. DAST-10): Positive *Physical Exam - Vital Signs Last Vital Signs Temp Pulse Resp BP Pulse Ox 98.3 F 92 H 20 154/78 100 07/18/20 15:57 07/18/20 15:57 07/18/20 15:57 07/18/20 15:57 07/18/20 15:57 - Physical Exam General Appearance: Yes: Nourished, Appropriately Dressed, Moderate Distress HEENT: positive: EOMI, DANAE, Normal ENT Inspection, Normal Voice, Symmetrical, TMs Normal, Pharynx Normal Neck: positive: Trachea midline, Normal Thyroid Respiratory/Chest: positive: Lungs Clear, Normal Breath Sounds Cardiovascular: positive: Regular Rhythm, Regular Rate, S1, S2 Gastrointestinal/Abdominal: positive: Normal Bowel Sounds, Flat, Soft Musculoskeletal: positive: Normal Inspection Integumentary: positive: Normal Color, Dry, Warm Neurologic: positive: floor coverings installer II-XII NML intact, Fully Oriented, Alert, Normal Mood/Affect, Normal Response, Motor Strength 5/5 ED Treatment Course - Medications Given in the ED: ED Medications Discontinued Medications Generic Name Dose Route Start Last Admin Trade Name Catie PRN Reason Stop Dose Admin Dexamethasone 10 mg 07/18/20 17:15 07/18/20 17:21 Decadron - PO 07/18/20 17:16 Not Given ONCE ONE Dexamethasone Sodium Phosphate 10 mg 07/18/20 17:19 07/18/20 17:33 Decadron Injection - IM 07/18/20 17:20 10 mg ONCE ONE Administration Medical Decision Making - Medical Decision Making 59 YOF h/o asthma and heroin abuse presents with angioedema of the tongue - vitals wnl - exam reveals fullness of the tongue - will give dexamethasone and reassess 07/18/20 19:29 Patient feeling better, able to return to [facility] - giving rx for epi pen Discharge - Discharge Information Problems reviewed: Yes Clinical Impression/Diagnosis: Allergic reaction Condition: Improved Disposition: HOME - Additional Discharge Information Prescriptions: EPINEPHrine (EPI-PEN 0.3MG) [Epipen 0.3MG -] 0.3 mg IM ASDIR #2 pens - Follow up/Referral - Patient Discharge Instructions Patient Printed Discharge Instructions: DI for General Allergic Reactions Additional Instructions: Discharge for patients: Please follow-up with your primary doctor(s) within 2-3 days. Please avoid any known triggers of your allergies. We recommend you see an County Nurse - we have given you a list of allergists (check with your insurance before making any appointments). You were given a copy of the results from any tests performed today in the Emergency Department which have results available. Show these to your doctor(s). Some of the tests we sent may not have results yet so please call or have your doctor call the Emergency Department to follow up on all results. We have sent a prescription for an Epi-Pen to your pharmacy. Please pick it up as soon as possible. Always carry this with you. In the Emergency Department today, we spoke about how to use the Epi-Pen only in the event of a severe allergic reaction with trouble breathing or throat swelling. You must go to the hospital right away if you ever use the Epi-Pen. Remember that they every year so you should have your doctor write a new prescription yearly. Take Benadryl (also called diphenhydramine) 25mg every 6-8 hours as needed for further allergy symptoms (can be purchased without a prescription) - please note that Benadryl often causes drowsiness so please do not drive, make important decisions or operate machinery until you know how it will affect you. Please return to the Emergency Department right away if you have any worsening or new shortness of breath, changes in your voice, tightness/itching in your mouth/throat, swelling, severe hives, chest pain, high fever. There is a very small chance of a recurrence of the allergic reaction, typically in the next 24 hours. If you see the same symptoms (rash, trouble breathing, vomiting, etc) return, come back to the Emergency Department immediately. - Post Discharge Activity
[2020-07-18 18:41] VITALS: BP 162/76; PULSE 90
[2020-07-18] MEDS ORDERED: cloNIDine HCL 0.1 MG TABLET PO ONE (18:49)
--- NOTE | 2020-07-18 18:54 | PDOC ---
Documentation entered by Claudia Oh SCRIBE, acting as scribe for Stacey Crain MD. Stacey Crain MD: This documentation has been prepared by the Althea babcock Xhesika, SCRIBE, under my direction and personally reviewed by me in its entirety. I confirm that the documentation accurately reflects all work, treatment, procedures, and medical decision making performed by me. Attending Attestation - Resident Resident Name: MichelleGianluca - ED Attending Attestation I have performed the following: I have examined & evaluated the patient, The case was reviewed & discussed with the resident, I agree w/resident's findings & plan - HPI HPI: 07/18/20 18:12 The patient is a 59y/o F with a pmh of asthma and substance abuse (alcohol and heroin abuse) who presents to the ED BIBA from [facility] s/p allergic reaction. Per [facility] note, the pt was complaining of tongue welling and shortness of breath. Pt was then given 0.3 of epi and 50mg of benadryl and sent to the ED for further evaluation. While in the ED, pt is complaining of myalgias, headache, fever, chills, nausea and vomiting. Denies chest pain, SOB, palpitation, dizziness, D, abdominal pain, bladder and bowel problems, leg swelling, No sick contacts or travel. No new changes in medications. Allergies: Diazepam, PCN Past Medical History: See HPI Social history: substance abuse (alcohol and heroin abuse) Meds: as documented in EMR - Physicial Exam PE: 07/18/20 18:14 Agree with the resident's HPI and PE as documented in the electronic medical record. NAD, well appearing, EOMI, PERRL, MMM, nl conjunctiva, anicteric; normal phonation, oropharynx clear. neck supple. no respiratory distress, MARRUFO x4, no focal neuro deficits. speech clear, No peripheral edema. normal color for ethnicity, WWP. 07/18/20 18:41 - Medical Decision Making 07/18/20 18:42 Vital Signs Temp Pulse Resp BP Pulse Ox 98.3 F 90 20 162/76 98 07/18/20 15:57 07/18/20 18:41 07/18/20 18:41 07/18/20 18:41 07/18/20 18:41 DDx. allergic reaction: hypersensitivity reaction, allergic reaction, anaphylaxis, hives/urticaria. drug rash. dermatitis. serum sickness. vasculitis. medication side effect. -No fevers or systemic findings, clinically well appearing. no mucosal involvement so doubt SJS/TEN. airway patent, doubt anaphylaxis or Dress syndrome. - No evidence of erythema multiforme, SJS/TEN, Lyme, cellulitis, necrotizing fasciitis, no angioedema, meningococcemia, otto mountain spotted fever. - given steroids, dexamethasone here, IM epi at [facility] at approx 1545 VS wnl, stable, no hypotension. - instructions on avoiding triggers, rx epi pen with refill, directions and use indications reviewed and understood; benadryl Q6-8 hr ATC x 3 days - sx were most likely local angioedema/allergic reaction, did not appear to be anaphylaxis. rx epi pen to be used prn anaphylaxis. Discharge: Does not appear at this time to be erythema multiforme, bullous, SJS, TEN; no evidence at this time to suggest RMSF or endocarditis or Lyme disease; patient looks well, nontoxic and is tolerating oral intake; no neurologic signs or symptoms; no headache or photophobia or neck pain; no ev of sepsis; question viral exanthem; afebrile; appropriate for initial o/p tx; d/w pt importance of f/u and pt agrees/understands; told pt to return to nearest ER immediately for any worsening sx incl but not limited to: fever, spreading rash, pain, sore throat, headache, dizziness, chest pain, trouble breathing, or any ssx concerning to the patient. I did d/w pt the aforementioned ddx as possibilities and pt understands to f/u even if better and to return to ER if un- changed/worse. Pt understands these instructions on d/c and is comfortable with discharge plan. to go back to [facility] with the instructions as above. 07/18/20 18:43 Discharge - Discharge Information Problems reviewed: Yes Clinical Impression/Diagnosis: Allergic reaction Condition: Improved Disposition: HOME - Admission No - Follow up/Referral - Patient Discharge Instructions Patient Printed Discharge Instructions: DI for General Allergic Reactions Additional Instructions: Discharge for patients: Please follow-up with your primary doctor(s) within 2-3 days. Please avoid any known triggers of your allergies. We recommend you see an [facility] - we have given you a list of allergists (check with your insurance before making any appointments). You were given a copy of the results from any tests performed today in the Emergency Department which have results available. Show these to your doctor(s). Some of the tests we sent may not have results yet so please call or have your doctor call the Emergency Department to follow up on all results. We have sent a prescription for an Epi-Pen to your pharmacy. Please pick it up as soon as possible. Always carry this with you. In the Emergency Department today, we spoke about how to use the Epi-Pen only in the event of a severe allergic reaction with trouble breathing or throat swelling. You must go to the hospital right away if you ever use the Epi-Pen. Remember that they every year so you should have your doctor write a new prescription yearly. Take Benadryl (also called diphenhydramine) 25mg every 6-8 hours as needed for further allergy symptoms (can be purchased without a prescription) - please note that Benadryl often causes drowsiness so please do not drive, make important decisions or operate machinery until you know how it will affect you. Please return to the Emergency Department right away if you have any worsening or new shortness of breath, changes in your voice, tightness/itching in your mouth/throat, swelling, severe hives, chest pain, high fever. There is a very small chance of a recurrence of the allergic reaction, typically in the next 24 hours. If you see the same symptoms (rash, trouble breathing, vomiting, etc) return, come back to the Emergency Department immediately. - Post Discharge Activity
[2020-07-18] MEDS ORDERED: cloNIDine HCL 0.1 MG TABLET ONE (18:57)
== END 2020-07-18 21:03 | disposition home or self-care (01) ==
LOC: JER 15:40
PROC: 3E0233Z Introduction of Anti-inflammatory into Muscle, Percutaneous Approach (ICD-10-PCS; principal; 2020-07-18)
DX: T78.40XA Allergy, unspecified, initial encounter (principal)
CPT/HCPCS: 99284-25; J0735; J1100